=== PATIENT | male | born 1960 | race Caucasian/White ===

== ENCOUNTER → 2022-03-13 | Day surgery (SDC) | payer BC, OTHER ==
[~2022-03-13] MED LIST: Lactated Ringers 1,000 ML IV SCH; Midazolam 1 MG/ML 2 ML SDV ONE; Propofol 200 MG/20 ML SDV ONE; fentaNYL 50 MCG/ML SDV ONE
[2022-03-13 10:52] VITALS: BP 114/66; PULSE 55
== END ==
LOC: JP.SDS 07:48
PROVIDERS: ATTEND Family Medicine
DX: Z12.11 Encounter for screening for malignant neoplasm of colon (principal); F32.A Depression, unspecified; Z80.0 Family history of malignant neoplasm of digestive organs; Z86.010 Personal history of colon polyps; Z79.899 Other long term (current) drug therapy
CPT/HCPCS: 45378; J2250; J2704; J3010; J7120